=== PATIENT | male | born 1970 | race Asian ===

== ENCOUNTER 2017-01-12 21:09 | Emergency (ER) | payer OTHER ==
[~2017-01-12] VITALS: Ht 167.6 cm; Wt 63.6 kg
[2017-01-12 21:12] VITALS: BP 150/100; PULSE 84; RESP 18; O2SAT 97
[2017-01-12 22:00] LABS: BASOPHILS % (AUTO) 0.1 % (0-3); EOSINOPHILS % (AUTO) 7.3 % (0-5); MONOCYTES % (AUTO) 6.8 % (4-12); Mean Corpuscular Hemoglobin 29.7 pg (27.0-35.0); Mean Corpuscular Volume 86.1 fL (81-100); NEUTROPHILS % (AUTO) 65.5 % (40-74); Platelet Count 243 bil/L (150-400)
[2017-01-12 22:32] LABS: Magnesium 2.2 mg/dL (1.6-2.6)
[2017-01-12 23:21] VITALS: BP 160/100; PULSE 76; RESP 17; O2SAT 98
--- NOTE | 2017-01-12 23:26 | ED.REPORT ---
HPI-Abd Pain M 40 and Over Date of Service Jan 12, 2017 ED Provider: Terrance Lopez MD A 46 year old male with no pertinent medical history presents to the ED complaining of abdominal pain. The pt began experiencing this pain approximately five days ago, and states that it is severe. The pain is not consistently exacerbated or relieved by eating. The pt denies black stool, nausea, vomiting, diarrhea or constipation. Nursing Notes Stated Complaint: STOMACH PAIN Chief Complaint: Male Abdominal Pain Nursing Notes Reviewed: Yes Allergies: Coded Allergies: No Known Allergies (Unverified , 01/12/17) Scheduled Omeprazole (Omeprazole) 20 Mg Tablet.dr 20 MG PO BID Scheduled PRN Ondansetron ODT (Ondansetron ODT) 8 Mg Tab.rapdis 8 MG PO QID PRN PRN For Nausea General Time Seen by MD: 23:25 Chief Complaint Abdominal pain Hx Obtained From: Patient Arrived By: Walk-in Sudden in Onset?: No Onset Occurred: 5 days ago Symptom Duration: Since onset Recent Healthcare: No recent doctor visit, No recent hospitalization Similar Sx Previous: No Past Medical History Past Medical History ecsema Past Surgical History none reported Smoking History Unknown if Ever Smoker Ambulatory Status Independent Review of Systems Review of Systems Note: denies black stool Respiratory: Denies: Non-productive cough, Shortness of breath Cardiovascular: Denies: Chest pain GI: Reports: Abdominal pain, Denies: Constipation, Diarrhea, Nausea, Vomiting Musculoskeletal: Denies: Back pain, Neck pain Complete sys rev & neg: except as marked. Physical Exam Initial Vital Signs Vital Signs (First) Date Time Temp Pulse Resp B/P Pulse Ox O2 Delivery O2 Flow Rate FiO2 01/12/17 21:12 37.0 84 18 150/100 97 01/12/17 23:21 Room Air Initial VS: Reviewed General/Constitutional: Awake, Alert Respiratory / Chest: Atraumatic, Breath sounds NL, Breath sounds = bilat, No respiratory distress Cardiovascular: Heart rate NL, Regular rhythm, Heart sounds NL Abdomen: Atraumatic, Soft midepigastric tenderness Back: Atraumatic, Full range of motion Head / Eyes: Atraumatic, Normocephalic, PERRL, EOMI ENT: Atraumatic, Airway patent Mouth: Positive: Mucous membranes dry Skin: Atraumatic, Color NL, No rash, Warm, Dry Neurologic: Oriented X3, Speech NL, No motor deficits, No sensory deficits Neck: Atraumatic, Supple, Full range of motion Upper Extremity / MS: Atraumatic, Full range of motion Lower Extremity / Pelvis / MS: Atraumatic, Full range of motion Psychiatric: Affect NL, Mood NL Interpretation & Diagnostics Lab Results Interpretation Result Diagram: 01/12/17214901/12/172149 Test 01/12/17 21:50 01/12/17 23:20 White Blood Count 6.9th/mm3 (3.8-10.1) Red Blood Count 4.89mil/mm3 (4.40-5.80) Hemoglobin 14.5g/dL (13.8-17.2) Hematocrit 42.1% (41.0-50.0) Mean Corpuscular Volume 86.1fL (81-100) Mean Corpuscular Hemoglobin 29.7pg (27.0-35.0) Mean Corpuscular Hemoglobin Concent 34.4% (32.0-37.0) Red Cell Distribution Width 12.3% (12.3-15.4) Platelet Count 243bil/L (150-400) Neutrophils (%) (Auto) 65.5% (40-74) Lymphocytes (%) (Auto) 20.2% (14-46) Monocytes (%) (Auto) 6.8% (4-12) Eosinophils (%) (Auto) 7.3% (0-5) Basophils (%) (Auto) 0.1% (0-3) Sodium Level 139mEq/L (134-144) Potassium Level 3.6mEq/L (3.5-5.2) Chloride Level 100mEq/L (97-108) Carbon Dioxide Level 24mmol/L (18-29) Blood Urea Nitrogen 18mg/dL (6-24) Creatinine 1.01mg/dL (0.76-1.27) Estimat Glomerular Filtration Rate 85mL/min (>59) Glucose Level 116mg/dL (60-99) Calcium Level 9.6mg/dL (8.5-10.1) Magnesium Level 2.2mg/dL (1.6-2.6) Total Bilirubin 0.6mg/dL (0.0-1.2) Aspartate Amino Transf (AST/SGOT) 22U/L (0-50) Alanine Aminotransferase (ALT/SGPT) 22U/L (0-44) Alkaline Phosphatase 77U/L (25-150) Total Protein 7.8g/dL (6.4-8.4) Albumin 4.4g/dL (3.4-5.0) Lipase 36U/L (13-60) Urine Color Yellow (YELLOW) Urine Appearance Clear (CLEAR,HAZY) Urine pH 6.5 (5.0-8.0) Urine Specific [place] 1.020 (1.003-1.035) Urine Protein Negativemg/dL (NEG,TRACE) Urine Glucose (UA) Negativemg/dL (NEGATIVE) Urine Ketones 40mg/dL (NEGATIVE) Urine Occult Blood Negative (NEGATIVE) Urine Nitrite Negative (NEGATIVE) Urine Bilirubin Negative (NEGATIVE) Urine Urobilinogen Normalmg/dL (NORMAL) Urine Leukocyte Esterase Negative (NEGATIVE) Urine RBC 0-2/hpf (0-2) Urine WBC 0-5/hpf (0-5) Urine Epithelial Cells Occasional/hpf (NONE-MOD) Urine Crystals Amorphous urates (NONE Urine Bacteria None/hpf (NONE-FEW) Urine Hyaline Casts None/lpf (NONE) Urine Granular Casts None seen (NONE SEEN) Urine Waxy Casts None seen (NONE SEEN) Urine Red Blood Cell Casts None seen (NONE SEEN) Urine White Blood Cell Casts None seen (NONE SEEN) Urine Mucus None seen (None Seen) Urine Trichomonas None seen (NONE SEEN) Urine Yeast None (NONE SEEN) Urinalysis Comment None Urine Culture Reflexed Not indicated CT Abd / Pelvis Interpretation CONCLUSION: Mild thickening of the distal esophageal wall due to hiatal hernia and/or mild esophagitis. Mild fatty infiltration of the liver. Normal appendix. No evidence for small bowel obstruction. Interpretation / Wet Read by: Interpret - Radiologist Re-Eval/Medical Decision Med Decision/Clinical Course 46-year-old presents with intermittent epigastric pain that sounds consistent with esophagitis. Laboratory evaluation is unrevealing. CT with contrast shows thickening of the lower esophagus suggestive of esophagitis and no other significant findings. He is improved but not completely so after Protonix IV and fluids. Some improvement also with GI cocktail. Home with twice a day omeprazole. Follow up with PCP. Prompt return if worse. Source of Hx: Old records Time of Eval: 02:24 Re-Evaluation/Progress Note: Pt rechecked, whose pain has improved somewhat. Radiology results, diagnosis and plan for discharge are discussed. The pt understands and agrees with the plan. All questions are addressed at this time. Counseled Regarding: Diagnosis, Lab results, Need for follow-up, When/why to return to ED Discharge & Departure Primary Impression: Epigastric pain Additional Impression: Esophagitis Disposition: Home Vital Signs - All Vital Signs Date Time Temp Pulse Resp B/P Pulse Ox O2 Delivery O2 Flow Rate FiO2 01/13/17 03:09 36.7 87 16 134/95 100 Room Air 01/12/17 23:21 36.7 76 17 160/100 98 Room Air 01/12/17 21:12 37.0 84 18 150/100 97 )( All Prior VS Reviewed: Yes Condition: Stable Patient Instructions: Esophagitis (ED) Additional Instructions: Take omeprazole twice daily. Zofran up to four times daily if needed for nausea. Avoid hot or acidic foods. Avoid alcohol. Follow-up with your doctor in the office. Return if any immediate issues over the weekend. Referrals: NOPCP (PCP) (Family) Scribe Attestation Portions of this note were transcribed by Flo Alas. I, Dr. Lopez personally performed the history, physical exam and medical decision-making; I reviewed and confirmed the accuracy of the information in the transcribed note. Signed by: Mariusz Verma, 01/13/2017 and 0316. Terrance Lopez MD Jan 12, 2017 23:25 FLO ALAS Jan 12, 2017 23:35
[2017-01-12] MEDS ORDERED: 0.9% Sodium Chloride 1,000 ML IV ONE (23:32)
[2017-01-12] MEDS ORDERED: Ondansetron 2 mg/mL 2 mL Inj IVPUSH ONE (23:35)
[2017-01-12] MEDS ORDERED: Pantoprazole 4 mg/mL 10 mL Inj IVPUSH ONE (23:35)
[2017-01-12] MEDS ORDERED: Iohexol 300 mg/mL 30 mL Inj PO ONE (23:35)
[2017-01-12 23:46] LABS: APPEARANCE,URINE CLEAR (CLEAR,HAZY); COLOR,URINE YELLOW (YELLOW); OCCULT BLOOD,URINE NEGATIVE (NEGATIVE); PH,URINE 6.5 (5.0-8.0); UROBILINOGEN,URINE NORMAL (NORMAL)
[2017-01-13] MEDS ORDERED: Alum-Mag Hydrox-Simeth 30 mL Suspension PO ONE (02:30)
[2017-01-13] MEDS ORDERED: Famotidine 10 mg/mL 2 mL Inj IVPUSH ONE (02:30)
[2017-01-13] MEDS ORDERED: OMEP20TA86 PO (02:33)
[2017-01-13] MEDS ORDERED: ONDA8TAB10 PO (02:33)
[2017-01-13 03:09] VITALS: BP 134/95; PULSE 87; RESP 16; O2SAT 100
--- NOTE | 2017-01-13 09:04 | DRSVH ---
PROCEDURE: CT ABDOMEN AND PELVIS WITH CONTRAST ([id number]) INDICATIONS: epigastric pain TECHNIQUE: After the administration of oral and intravenous contrast, 5 mm thick sections acquired from the diap hragms to the symphysis. 5 mm thick coronal and sagittal reformats were performed. For radiation do se reduction, the following was used: automated exposure control, adjustment of mA and/or kV accordi ng to patient size. COMPARISON: None. FINDINGS: Image quality: Excellent. ABDOMEN: Lung bases: Lung bases are clear. Heart size is normal. There is a small hiatal hernia. Mild dista l esophageal thickening near the GE junction. Solid organs: Mild hepatic fatty infiltration. Liver and spleen are normal in size and enhancement. Gallbladder is normal. Biliary system is non-dilated. Pancreas enhances normally. No adrenal nodu les. Kidneys are normal in size and enhancement, without hydronephrosis. Peritoneum and bowel: Stomach, small bowel, and colon loops are normal in caliber and wall thickness . Normal appendix. No free fluid or air. Nodes and vessels: No retroperitoneal or mesenteric adenopathy. Aorta and inferior vena cava are no rmal in caliber. Miscellaneous: No ventral hernias. PELVIS: Genitourinary: Bladder wall thickness is normal. Miscellaneous: No inguinal hernias or adenopathy. Bones: No suspicious bony lesions. No vertebral body compression fractures. IMPRESSION: 1. There is a small hiatal hernia. There is mild distal esophageal thickening near the GE junction wh ich may be caused artifact, chronic gastroesophageal reflux or esophagitis. If clinically indicated, esophagram or upper endoscopy may be considered. 2. Mild hepatic steatosis. No significant discrepancy with the [facility] radiology preliminary report. Dictated by: Jose Diamond M.D. on 01/13/2017 at 8:58 Approved by: Jose Diamond M.D. on 01/13/2017 at 9:02
== END 2017-01-13 03:09 | disposition home or self-care (01) ==
LOC: SED 21:09
DX: K20.9 Esophagitis, unspecified (principal); R10.13 Epigastric pain
CPT/HCPCS: 36415; 74177; 80053; 81000; 83690; 83735; 85025; 96361; 96374; 96375; 99285; J2405; J7030; Q9967